=== PATIENT | male | born 1995 | race Hispanic/Latino ===

== ENCOUNTER 2019-04-07 13:49 | Emergency (ER) | payer OTHER, SELFPAY ==
[2019-04-07] MEDS ORDERED: Azithromycin 250 MG TAB ONE (14:17)
== END 2019-04-07 14:40 | disposition home or self-care (01) ==
LOC: MADERS 13:49
DX: J02.0 Streptococcal pharyngitis (principal); F17.210 Nicotine dependence, cigarettes, uncomplicated; Z71.6 Tobacco abuse counseling
CPT/HCPCS: 99406; J7620

== ENCOUNTER 2022-03-31 11:02 | Emergency (ER) | payer OTHER, SELFPAY ==
[2022-03-31] MEDS ORDERED: Boostrix 0.5 ML (Tdap) VIAL (>/=7 yrs of age) ONE (11:31)
[2022-03-31] MEDS ORDERED: Ibuprofen 800 MG TAB ONE (12:35)
== END 2022-03-31 12:40 | disposition home or self-care (01) ==
LOC: MADERS 11:02
DX: S62.525A Nondisplaced fracture of distal phalanx of left thumb, initial encounter for closed fracture (principal); W23.0XXA Caught, crushed, jammed, or pinched between moving objects, initial encounter; Z23 Encounter for immunization
CPT/HCPCS: 90471; 90715